=== PATIENT | female | born 1960 | race Caucasian/White ===

== ENCOUNTER 2016-06-28 11:12 | Observation (INO) ==
--- NOTE | 2016-06-28 11:19 | Emergency Department Note ---
Disposition Clinical Impression: Neurological deficit present Disposition: Admitted As Inpatient Condition: Good Time of Disposition: 13:53 Neuro HPI - General Chief Complaint: ED Neuro Symptoms/Deficit Stated Complaint: R side N/T Weakness Time Seen by Provider: 06/28/16 11:14 Source: patient, EMS Mode of arrival: EMS Limitations: no limitations Nursing Notes Reviewed: Yes Vital Signs Reviewed: Yes - History of Present Illness HPI Narrative: 85-year-old female with history of insulin-dependent diabetes arrives to [facility] emergency department after awaking at roughly 6 AM this morning complaining of right hand paresthesias. The patient denies any other complaints including chest pain, difficulty breathing. The patient does admit to progression of the right hand and arm paresthesias radiating more proximally from her hand as well as developing a frontal headache bilaterally. In addition now the patient is complaining of right-sided facial numbness. The patient does state that she has been told by her over the past 2 days that she has not been acting quite herself. The patient denies any recent illness, fever, chills, nausea, vomiting, abdominal pain. The patient denies any other neurologic deficits at this time. The patient does not meet stroke alert protocol given the patient's symptoms existing now for 5 hours but previous unknown overnight as well as not acting well over the past 2 days. The patient has an NIH of 1 at this time given her paresthesias and weakness in right hand. Onset of Symptoms Date: 06/28/16 (Unknown exact) Symptom Onset Unknown: Yes Location: right face, right arm History of same: No Severity: mild Quality: weakness, numbness Symptoms Improving: No Worsens with: time Context: other (Unknown) On Anticoagulants: No Associated symptoms: Reports: denies other symptoms Treatments Prior to Arrival: none - Related Data Home Medications: Home Medications Medication Instructions Recorded Confirmed Albuterol Neb [AccuNeb] 1.25 mg IH Q4H PRN 04/05/16 06/28/16 Albuterol Sulfate [Albuterol 2 puff IH Q4HR PRN 04/05/16 06/28/16 Inhaler] Allopurinol [Zyloprim] 300 mg PO DAILY 04/05/16 06/28/16 Aspirin 81 mg PO DAILY 04/05/16 06/28/16 BuPROPion XL (24 HR) [Wellbutrin 150 mg PO DAILY 04/05/16 06/28/16 XL] Budesonide/Formoterol 160/4.5 2 puff IH BIDR 04/05/16 06/28/16 [Symbicort 160/4.5] Carvedilol 12.5 mg PO DAILY 04/05/16 06/28/16 Cholecalciferol (D-3) [Vitamin D] 2,000 unit PO DAILY 04/05/16 06/28/16 Colchicine 0.6 mg PO DAILY PRN 04/05/16 06/28/16 Cyanocobalamin (Vitamin B-12) 1,000 mcg SL DAILY 04/05/16 06/28/16 [Vitamin B-12] Duloxetine [Cymbalta] 30 mg PO DAILY 04/05/16 06/28/16 EPINEPHrine [Epipen] 0.3 mg IM ONCE PRN 04/05/16 06/28/16 LORazepam [Ativan] 1 mg PO 5XD PRN 04/05/16 06/28/16 Levothyroxine [Synthroid] 50 mcg PO 0630 04/05/16 06/28/16 Losartan Potassium [Cozaar] 100 mg PO DAILY 04/05/16 06/28/16 Pantoprazole Sodium [Protonix] 40 mg PO DAILY 04/05/16 06/28/16 Simvastatin [Zocor] 40 mg PO HS 04/05/16 06/28/16 SitaGLIPtin [Januvia] 100 mg PO DAILY 04/05/16 06/28/16 SUMAtriptan Succinate [Imitrex] 100 mg PO DAILY PRN 06/28/16 06/28/16 Valacyclovir HCl [Valtrex] 1,000 mg PO TID 06/28/16 06/28/16 Allergies/Adverse Reactions: Allergies Allergy/AdvReac Type Severity Reaction Status Date / Time topiramate [From Topamax] Allergy Severe Anaphylaxis Verified 04/05/16 10:22 atorvastatin [From Lipitor] Allergy Mild Palpitation Verified 04/05/16 10:22 s glimepiride Allergy Mild See Verified 04/05/16 10:22 Comments levofloxacin [From Levaquin] Allergy Mild See Verified 04/05/16 10:22 Comments metformin Allergy Mild See Verified 04/05/16 10:22 Comments Oxycodone Allergy Mild Rash Verified 04/05/16 10:22 prednisone Allergy Mild See Verified 04/05/16 10:22 Comments acetaminophen [From Percocet] AdvReac Mild Nausea Verified 04/05/16 10:22 lisinopril AdvReac Mild Cough Verified 04/05/16 10:22 Review of Systems: Review of Systems Constitutional: Denies fevers, chills, HEENT: Denies headache, blurry vision, tinnitus, vertigo, sore throat, Respiratory: Denies cough, sputum change, hemoptysis, dyspnea Cardiac: Denies chest pain, pressure, palpitations, dyspnea on exertion, pedal edema Gastrointestinal: Denies abdominal pain, changes in bowel habits, vomiting, nausea, hematemesis, hematochezia Genitourinary: Denies dysuria, hematuria, nocturia, change in frequency, urgency, incontinence Neurologic: Admits to headaches, denies dizziness, syncope, admits to focalized weakness, paraesthesias, weakness Musculoskeletal: Denies back pain, joint pain, myalgias All systems ED: reviewed and negative except as stated. Past Medical History - Past Medical History Attestation: Yes The following information was validated with the patient. 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 Abdomen: Normal inspection, Normal bowel sounds 4 quadrants, nontender to palpation : Patient deferred Extremities: Normal inspection, full range of motion, appropriate pulses, capillary refill under 2 seconds Neurological: Patient alert and oriented 3, mild facial paresthesias on the right side of the face, all other cranial nerves intact bilaterally. GCS 15 Skin: Warm, intact, no rashes noted Course Course Narrative: Patient with right hand and arm paresthesias as well as the right side of the face. No stroke alert given the time that the patient is experiencing symptoms which is possibly up to 2 days given the patient's stating that she has not been acting herself for 2 days. In addition the patient states she woke up roughly 5 hours ago with these symptoms. There is an unknown onset. The patient does have an NIH of 1 at this time. We will perform basic lab work to include CBC, BMP, troponin, EKG, head CT. We will likely admit the patient to the hospitalist with neurology consult. - Consultations Consultation #1: Spoke with Dr. Mendoza in neurology who agreed to the plan of admission and further workup for possible stroke. The patient will be admitted to hospitals at this time. Time: 13:34 Vital Signs Temperature 98.3 F 06/28/16 11:14 Pulse Rate 70 06/28/16 11:14 Respiratory Rate 16 06/28/16 11:14 Blood Pressure 133/76 06/28/16 11:14 O2 Sat by Pulse Oximetry 98 06/28/16 11:14 Temperature 98.3 F 06/28/16 11:14 Pulse Rate 72 06/28/16 14:08 Respiratory Rate 14 06/28/16 14:08 Blood Pressure 134/85 06/28/16 14:08 O2 Sat by Pulse Oximetry 97 06/28/16 14:08 Oxygen Delivery Oxygen Delivery Room Air Neuro Symptoms/Deficit - MDM Narrative Medical decision making narrative: I examined this patient and my medical decision-making was reviewed with the B[employer]LE [employer] QUALITY CONTROL TECHNICIAN/PA/Advanced Practice Nurse/Resident Physician. I agree with the documented findings, disposition and treatment plan as described except to the extent set forth below. Patient was seen on arrival by EMS and myself and Dr. Hawkins. I agree with his evaluation and management plan, I supervised the care of the patient felt stated. Patient states her thinks she has been confused for last couple days. She thinks this could be 2 or 3 at most. She woke up this morning between 6 and 7 AM with numbness in her right arm low but in the right side of her face. Denies any chest pain no difficulty speaking or other weakness. These were present when she awoke. Did not occur after she was awake. She denies any history of stroke. Benadryl workup on her. She is outside the window of stroke alert. Her NIH at [place] is 1. She may need admission. She is in agreement with this plan. Given the patient's strokelike symptoms including paresthesias of the right upper extremity in the distal aspect as well as the right side of the face but being outside of any stroke protocol window given the patient's unknown time of onset, we will admit the patient to [facility] hospitalist group for further workup. Neurology has been consulted and is aware of the patient. Recommends no further workup in the emergency department at this time likely will receive carotid ultrasound as well as MRI of the brain. Patient denies any other complaints at this time. She remains GCS 15 is answering questions appropriate. She does slightly have a flat affect which has been noticed during the entire examination. The patient was informed that she would be admitted to the hospital in which she agrees. Lab work does reveal a increase in kidney function which is apparently at the patient's baseline when compared to previous visits. Lab work is otherwise unremarkable. 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 No other acute abnormalities noted. Chest x-ray demonstrated no acute findings. Chest X-Ray 06/28/16 11:15 IMPRESSION: No acute cardiopulmonary abnormality. D/ / Andres Carbone MD / Andres Carbone MD Interpreting Provider: Andres Carbone MD Head CT 06/28/16 11:15 IMPRESSION: 1. No acute intracranial abnormality. 2. There is asymmetric prominence of the right lateral ventricle compared to the left, which is unchanged from the prior exam. This may be congenital in nature. Mild leftward bowing of the septum pellucidum is seen, which is also unchanged. 3. Minimal chronic microvascular ischemic change. D/ / Andres Carbone MD / Andres Carbone MD Interpreting Provider: Andres Carbone MD - Lab Data Result diagrams: 06/28/16 12:34 03/23/17 12:34 Lab Results 06/28/16 06/28/16 06/28/16 Range/Units 12:34 12:34 12:34 WBC 9.5 (4.3-11.1) K/mcL RBC 4.13 (3.82-4.97) M/mcL Hgb 12.7 (11.5-15.4) g/dL Hct 37.9 (35.3-44.9) % MCV 91.8 (83.0-100.0) fL MCH 30.8 (28.0-33.3) pg MCHC 33.5 (31.6-35.5) g/dL RDW 13.5 (11.5-14.5) % Plt Count 311 (140-400) K/mcL MPV 8.9 L (9.4-12.4) fL Immature Gran % 0.9 (0-4) % Seg Neutrophils % 57.7 % Lymphocytes % 31.4 % Monocytes % 6.3 % Eosinophils % 3.0 % Basophils % 0.7 % Neutrophils # 5.5 (1.6-8.9) K/mcL Lymphocytes # 3.0 (0.6-4.6) K/mcL Monocytes # 0.6 (0.0-1.3) K/mcL Eosinophils # 0.3 (0.0-0.6) K/mcL Basophils # 0.1 (0.0-0.2) K/mcL Sodium 138 (136-145) mEq/L Potassium 4.4 (3.5-4.5) mEq/L Chloride 102 (98-109) mEq/L Carbon Dioxide 26 (19-29) mEq/L BUN 16 (7-20) mg/dL Creatinine 1.23 H (0.57-1.11) mg/dL Est GFR ( Amer) 55 L (> 60) Est GFR (Non-Af Amer) 46 L (> 60) BUN/Creatinine Ratio 13 (6-26) Glucose 218 H (70-99) mg/dL Calculated Osmolality 294 (280-300) Calcium 10.2 (8.6-10.8) mg/dL Troponin I 0.01 (0-0.03) ng/mL - EKG Data EKG attestation: Yes I reviewed and interpreted this EKG. EKG results narrative: Heart rate 72 bpm. KS 148 ms. QTC 373 ms. Normal axis. Normal sinus rhythm. No ST elevation or ST depression noted. EKG from 04/02/2016 someone appearance. No acute changes noted. NIH Stroke Scale - Level of Consciousness LOC: Alert - LOC Questions LOC Questions: Answers both correctly - LOC Commands LOC Commands: Performs both correctly - Best Gaze Best Gaze: Normal - Visual Visual: No visual loss - Facial Palsy Facial Palsy: Normal - Motor Arms Motor Arm-Left: No drift for 10 seconds Motor Arm-Right: No drift for 10 seconds - Motor Legs Motor Leg-Left: No drift for 5 seconds Motor Leg-Right: No drift for 5 seconds - Limb Ataxia Limb Ataxia: Normal, No Ataxia - Sensory Sensory: Mild to moderate loss, "not as sharp" - Best Language Best Language: No aphasia - Dysarthria Dysarthria: Normal - Extinction and Inattention Extinction and Inattention: Normal - NIHSS Total Score NIHSS Total Score: 1
[2016-06-28 12:40] LABS: Basophils # 0.1 K/mcL (0.0-0.2); Basophils % 0.7 %; Eosinophils # 0.3 K/mcL (0.0-0.6); Hematocrit 37.9 % (35.3-44.9); Hemoglobin 12.7 g/dL (11.5-15.4); Immature Granulocytes % 0.9 % (0-4); Lymphocytes % 31.4 %; Mean Corpuscular HGB Conc 33.5 g/dL (31.6-35.5); Mean Corpuscular Hemoglobin 30.8 pg (28.0-33.3); Mean Corpuscular Volume 91.8 fL (83.0-100.0); Mean Platelet Volume 8.9 fL (9.4-12.4); Monocytes # 0.6 K/mcL (0.0-1.3); Monocytes % 6.3 %; Neutrophils # 5.5 K/mcL (1.6-8.9); Platelet Count 311 K/mcL (140-400); Red Blood Count 4.13 M/mcL (3.82-4.97); Red Cell Distribution Width 13.5 % (11.5-14.5); Segmented Neutrophils % 57.7 %
[2016-06-28 12:52] LABS: Calcium 10.2 mg/dL (8.6-10.8); Potassium 4.4 mEq/L (3.5-4.5)
--- NOTE | 2016-06-28 14:12 | Neurology - Consult Note ---
Date of Encounter: 06/28/16 Time of Encounter: 14:06 Assessment and Plan (1) Stroke-like symptoms Current Visit: Yes Status: Acute Most likely lacunar etiology given the characteristics of her presentation in setting of recent uncontrolled hypertension Her CT was negative for bleed or infarct but did show chronic enlarged right ventricle Will follow up with MRI of brain without contrast along with echocardiogram and carotid ultrasound Start her on full dose Aspirin and her home dose of Simvastatin and she has an adverse reaction to Atorvastatin History of Present Illness Chief complaint: numbness tingling of right arm HPI: Ms. Grace is a 55 year old female who presents with right hand numbness and tingling. She first noticed the symptoms when she woke up this morning at 6 AM. She describes numbness in the medial aspect of her right hand, affecting her 3rd , 4th, and 5th digits. The numbness and tingling eventually progressed to the lateral aspect of her hand and also about 5 cm above her wrist, and also describes weakness in her right hand. She also noticed right facial numbness, but was unaware of it until the ER physician examined her. In addition, she claims both her and daughter noticed this Saturday that she was not acting herself and was more forgetful than normal. However, her sister is present a bedside and states she is currently acting like herself. Denies any changes in vision/hearing, loss of consciousness, or lower extremity problems. She never had any similar symptoms in the past and denies history of stroke, cancer, or blood clots. She does normally take low dose aspirin and simvastatin as well. Of note, she has a history of hypertension and states her home blood pressure readings this past week were slightly higher than usual. Past Med Surg Social Fam HX - Past Medical History Medical history: asthma, diabetes, GERD, hypertension, kidney stones, renal disease, other Psychiatric history: anxiety, depression - Past Surgical History Surgical History: , cholecystectomy, hysterectomy - Social History Smoking Status: Never smoker Smokeless Tobacco Status: No Alcohol use: none Drug use: none Medications and Allergies Albuterol Neb [AccuNeb] 1.25 mg IH Q4H PRN 04/05/16 [History] Albuterol Sulfate [Albuterol Inhaler] 2 puff IH Q4HR PRN 04/05/16 [History] Allopurinol [Zyloprim] 300 mg PO DAILY 04/05/16 [History] Aspirin 81 mg PO DAILY 04/05/16 [History] BuPROPion XL (24 HR) [Wellbutrin XL] 150 mg PO DAILY 04/05/16 [History] Budesonide/Formoterol 160/4.5 [Symbicort 160/4.5] 2 puff IH BIDR 04/05/16 [ History] Carvedilol 12.5 mg PO DAILY 04/05/16 [History] Cholecalciferol (D-3) [Vitamin D] 2,000 unit PO DAILY 04/05/16 [History] Colchicine 0.6 mg PO DAILY PRN 04/05/16 [History] Cyanocobalamin (Vitamin B-12) [Vitamin B-12] 1,000 mcg SL DAILY 04/05/16 [ History] Duloxetine [Cymbalta] 30 mg PO DAILY 04/05/16 [History] EPINEPHrine [Epipen] 0.3 mg IM ONCE PRN 04/05/16 [History] LORazepam [Ativan] 1 mg PO 5XD PRN 04/05/16 [History] Levothyroxine [Synthroid] 50 mcg PO 0630 04/05/16 [History] Losartan Potassium [Cozaar] 100 mg PO DAILY 04/05/16 [History] Pantoprazole Sodium [Protonix] 40 mg PO DAILY 04/05/16 [History] Simvastatin [Zocor] 40 mg PO HS 04/05/16 [History] SitaGLIPtin [Januvia] 100 mg PO DAILY 04/05/16 [History] SUMAtriptan Succinate [Imitrex] 100 mg PO DAILY PRN 06/28/16 [History] Valacyclovir HCl [Valtrex] 1,000 mg PO TID 06/28/16 [History] Allergies topiramate [From Topamax] Allergy (Severe, Verified 04/05/16 10:22) Anaphylaxis atorvastatin [From Lipitor] Allergy (Mild, Verified 04/05/16 10:22) Palpitations glimepiride Allergy (Mild, Verified 04/05/16 10:22) See Comments Angioedema levofloxacin [From Levaquin] Allergy (Mild, Verified 04/05/16 10:22) See Comments Crazy thoughts metformin Allergy (Mild, Verified 04/05/16 10:22) See Comments elevated renal function Oxycodone Allergy (Mild, Verified 04/05/16 10:22) Rash prednisone Allergy (Mild, Verified 04/05/16 10:22) See Comments Crazy thoughts acetaminophen [From Percocet] Adverse Reaction (Mild, Verified 04/05/16 10:22) Nausea lisinopril Adverse Reaction (Mild, Verified 04/05/16 10:22) Cough All Systems: A 10-system review of systems was performed and is negative for pertinent findings except as documented above in the HPI. - Constitutional Constitutional ROS IM: as per HPI, headache(s) (chronic, intermittent), weakness , no fever(s), no frequent falls - Nose, Mouth, Throat Nose, mouth and throat: no abnormal hearing, no dysphagia, no neck mass, no neck pain - Cardiovascular Cardiovascular ROS IM: no chest pain, no diaphoresis, no dyspnea, no edema, no irregular heart rhythm - Respiratory Respiratory IM: no cough, no dyspnea, no wheezing - Gastrointestinal Gastrointestinal: nausea, no abdominal pain, no vomiting - Genitourinary Genitourinary ROS: no dysuria, no hematuria - Musculoskeletal Musculoskeletal ROS IM: muscle weakness, numbness, tingling - Neurological Neurological ROS: confusion, focal weakness, headache(s), memory loss, numbness , tingling, weakness, no syncope, no tremor(s), no vertigo Physical Examination - Vital Signs Vital Signs: Initial Vital Signs Temp Pulse Resp BP Pulse Ox 98.3 F 70 16 133/76 98 06/28/16 11:14 06/28/16 11:14 06/28/16 11:14 06/28/16 11:14 06/28/16 11:14 - Constitutional General appearance: comfortable - Neurologic Sensorimotor examination: intact Motor examination - right side: 3/5: back tender cylinder, 5/5: deltoids, biceps, triceps, quadriceps Motor examination - left side: 5/5: deltoids, biceps, triceps, hip flexors, back tender cylinder , quadriceps Detailed sensory examination: two-point discrimination (symptomatic on right face) Reflex and gait examination: intact Reflexes: Biceps: 2+, Triceps: 2+, Patella: 2+ Mental Status Examination: awake, alert, oriented to person, oriented to place, oriented to time, follows commands appropriately, answers questions appropriately, no agnosia, no aphasia, no aproxia Cranial nerve examination: PERRL, EOMI, visual kathleen intact, corneal reflexes brisk symmetrically, sensory to face intact, mastication intact, no facial asymmetry is present, no dysarthria, hearing is intact symmetrically, soft palate elevates bilaterally upon phonation, gag reflex intact, flexes SCM and trapezius muscles symmetrically with full power, tongue protrudes midline, no atrophy or facial fasiculations present Cerebellar examination: no dysmetria, performs finger to nose and heel to baptiste symmetrically without ataxia, no gait ataxia, no truncal ataxia, no difficulty with rapid alternating movements Results - Laboratory Findings CBC and BMP: 06/28/16 12:34 06/28/16 12:34 Abnormal lab findings: Abnormal lab results MPV 8.9 fL (9.4-12.4) L 06/28/16 12:34 Creatinine 1.23 mg/dL (0.57-1.11) H 06/28/16 12:34 Est GFR ( Amer) 55 (> 60) L 06/28/16 12:34 Est GFR (Non-Af Amer) 46 (> 60) L 06/28/16 12:34 Glucose 218 mg/dL (70-99) H 06/28/16 12:34 Consult Discharge Plan - Plan Referrals: Lizzette Hallman MD [Primary Care Provider] -
[2016-06-28 14:22] LABS: Bilirubin,Urine Negative (Negative); Blood,Urine Negative (Negative); Clarity,Urine Clear (Clear); Color,Urine Yellow (Yellow); Glucose,Urine (UA) Normal (Normal); Ketones,Urine Negative (Negative); Leukocyte Esterase,Urine Negative (Negative); Nitrite,Urine Negative (Negative); Protein,Urine Negative (Neg-Trace); Specific Gravity,Urine 1.018 (1.010-1.025); Urobilinogen,Urine Normal (Normal)
[2016-06-28] MEDS ORDERED: Naloxone 0.4 MG/ML INJ IVP PRN (15:45)
[2016-06-28] MEDS ORDERED: Acetaminophen 325 MG TABLET PO PRN (15:45)
[2016-06-28] MEDS ORDERED: Ondansetron 4 MG/2 ML VIAL IVP PRN (15:45)
[2016-06-28] MEDS: Aspirin 325 MG TABLET PO SCH (15:47)
[2016-06-28] MEDS ORDERED: *HR* Dextrose 50 % in Water (Syg) 50 ML SYRINGE IVP PRN (17:53)
[2016-06-28] MEDS ORDERED: Dextrose Gel 15 GM PO PRN ×2 (17:53)
[2016-06-28] MEDS ORDERED: Albuterol Neb 1.25 MG/3 ML VIAL IH PRN (18:05)
[2016-06-28] MEDS ORDERED: ALBUTEROL IH PRN (18:19)
[2016-06-28] MEDS ORDERED: SODIUM CHLORIDE IH PRN (18:19)
[2016-06-28 18:28] LABS: Hemoglobin A1C 9.4 %
[2016-06-28] MEDS: Budesonide/Formoterol 160/4.5 MDI IH SCH (20:51)
[2016-06-28] MEDS ORDERED: Insulin LISPRO 300 UNITS/3 ML VIAL SQ SCH (21:00)
--- NOTE | 2016-06-28 21:01 | Internal Med History&Physical ---
Date of Encounter: 06/28/16 Time of Encounter: 17:00 Assessment and Plan (1) Stroke-like symptoms Current visit: Yes Status: Acute 1 patient has been experiencing right-sided arm weakness numbness and tingling. CT of head was negative for bleed or infarct but did show chronic enlargement ventricle as well as minimal chronic microvascular ischemic changes. Patient was seen by neurology who suspected this most likely etiology due to her presentation and her recently uncontrolled hypertension. She was placed on full dose aspirin and continue with simvastatin. 2 routine lipid profile in a.m. 3 tingling MRI of brain 4 echocardiogram 5 bilateral carotid ultrasound (2) Hypertension Current visit: Yes Status: Acute 1 presently systolic blood pressure 120 to 130. We will continue with home medications. Goal is to maintain systolic blood pressure less than 140 Qualifiers: Hypertension type: essential hypertension Qualified Code(s): I10 - Essential (primary) hypertension (3) Diabetes mellitus Current visit: Yes Status: Acute Patient has history of diabetes Oral Antidiabetics at Home. We Will Place on Accu-Cheks before Meals and at Bedtime with Insulin As Needed Colostomy Team Postprandial Less Than 180 2 diabetic diet Qualifiers: Diabetes mellitus type: type 2 Diabetes mellitus complication status: with kidney complications Diabetes mellitus complication detail: with chronic kidney disease Diabetes mellitus fci insulin use: without fci use Chronic kidney disease stage: stage 2 (mild) Qualified Code(s): E11.22 - Type 2 diabetes mellitus with diabetic chronic kidney disease; N18.2 - Chronic kidney disease, stage 2 (mild) (4) Chronic kidney disease (CKD), stage II (mild) Current visit: Yes Status: Acute Internal Medicine - H&P: HPI Chief complaint: r sided weakness Admitted From: Emergency Dept Plans for Post Hospital Care: Home History of present illness: Ms. Grcae is a 55 year old female past history of asthma and diabetes GERD hypertension see CKD stage II. Creatinine the patient should experience decreased weakness/to her right hand as well as tingling to her third and fourth digits numbness and tingling that she progressed to lateral aspect of her hand as well as wrist. She also has some right facial numbness which did not notice this until she arrived in the ER during examination.. According to her family the patient had not been acting herself since Saturday. Has been states she noted that she was more forgetful and at times seemed as if she was not processing information. She denies any changes in her vision hearing or problems swallowing chewing. She states that she has noticed that she has had difficulty holding onto items in her right hand felt like her arm was heavy. She denies any past history of stroke, she does not smoke. She is on aspirin and statin at home she has history of hypertension and states her blood pressure has been elevated in the past week. She presented to the ED with the above complaints. According to ER records CT of head revealed minimal chronic microvascular ischemic changes. No acute intracranial abnormalities. Lab work was unremarkable. She did weakness in her right hand as well as right facial numbness. Chest x-ray no acute process. Neurology was consulted and the patient has been admitted for further workup and evaluation. Presently patient appears to be in no respiratory distress . She is alert and oriented 4 cranial nerves II through XII are intact. Limited right hand weakness and decreased strength in right arm. She had a positive Romberg sign. Presently she is hemodynamically stable. I did review this case with who agrees with plan Past Med Surg Social Fam HX - Past Medical History Medical history: asthma, diabetes, GERD, hypertension, kidney stones, renal disease, other Psychiatric history: anxiety, depression - Past Surgical History Surgical History: , cholecystectomy, hysterectomy - Social History Smoking Status: Never smoker Smokeless Tobacco Status: No Alcohol use: none Drug use: none - Family History Mother Living Status: Hx Family Cardiac Disorders: Yes (heart attack) Hx Family Neurologic Disorders: Yes (stroke) Internal Medicine - H&P: Meds Albuterol Neb [AccuNeb] 1.25 mg IH Q4H PRN 04/05/16 [History] Albuterol Sulfate [Albuterol Inhaler] 2 puff IH Q4HR PRN 04/05/16 [History] Allopurinol [Zyloprim] 300 mg PO DAILY 04/05/16 [History] Aspirin 81 mg PO DAILY 04/05/16 [History] BuPROPion XL (24 HR) [Wellbutrin XL] 150 mg PO DAILY 04/05/16 [History] Budesonide/Formoterol 160/4.5 [Symbicort 160/4.5] 2 puff IH BIDR 04/05/16 [ History] Carvedilol 12.5 mg PO DAILY 04/05/16 [History] Cholecalciferol (D-3) [Vitamin D] 2,000 unit PO DAILY 04/05/16 [History] Colchicine 0.6 mg PO DAILY PRN 04/05/16 [History] Cyanocobalamin (Vitamin B-12) [Vitamin B-12] 1,000 mcg SL DAILY 04/05/16 [ History] Duloxetine [Cymbalta] 30 mg PO DAILY 04/05/16 [History] EPINEPHrine [Epipen] 0.3 mg IM ONCE PRN 04/05/16 [History] LORazepam [Ativan] 1 mg PO 5XD PRN 04/05/16 [History] Levothyroxine [Synthroid] 50 mcg PO 0630 04/05/16 [History] Losartan Potassium [Cozaar] 100 mg PO DAILY 04/05/16 [History] Pantoprazole Sodium [Protonix] 40 mg PO DAILY 04/05/16 [History] Simvastatin [Zocor] 40 mg PO HS 04/05/16 [History] SitaGLIPtin [Januvia] 100 mg PO DAILY 04/05/16 [History] SUMAtriptan Succinate [Imitrex] 100 mg PO DAILY PRN 06/28/16 [History] Valacyclovir HCl [Valtrex] 1,000 mg PO TID 06/28/16 [History] Allergies topiramate [From Topamax] Allergy (Severe, Verified 04/05/16 10:22) Anaphylaxis atorvastatin [From Lipitor] Allergy (Mild, Verified 04/05/16 10:22) Palpitations glimepiride Allergy (Mild, Verified 04/05/16 10:22) See Comments Angioedema levofloxacin [From Levaquin] Allergy (Mild, Verified 04/05/16 10:22) See Comments Crazy thoughts metformin Allergy (Mild, Verified 04/05/16 10:22) See Comments elevated renal function Oxycodone Allergy (Mild, Verified 04/05/16 10:22) Rash prednisone Allergy (Mild, Verified 04/05/16 10:22) See Comments Crazy thoughts acetaminophen [From Percocet] Adverse Reaction (Mild, Verified 04/05/16 10:22) Nausea lisinopril Adverse Reaction (Mild, Verified 04/05/16 10:22) Cough All Systems PM: A 10-system review of systems was performed and is negative for pertinent findings except as documented above in the HPI. - Constitutional Constitutional: no chills, no fever(s), no night sweats - EENT Eyes: no change in vision, no discharge, no pain, no photophobia - Cardiovascular Cardiovascular ROS IM: no chest pain, no diaphoresis, no dyspnea, no lightheadedness, no palpitations, no syncope - Respiratory Respiratory: no cough, no dyspnea, no wheezing, no excessive phlegm production - Gastrointestinal Gastrointestinal: no abdominal pain, no diarrhea, no hematemesis, no hematochezia, no melena, no nausea, no vomiting - Genitourinary Genitourinary: no change in urinary stream, no dysuria, no flank pain, no hematuria - Musculoskeletal Musculoskeletal ROS IM: no numbness, no tingling - Integumentary Integumentary IM: as per HPI - Neurological Neurological ROS: numbness, tingling, weakness - Constitutional Vitals: Temp Pulse Resp BP Pulse Ox 98.3 F 79 16 122/72 95 06/28/16 19:25 06/28/16 19:25 06/28/16 19:25 06/28/16 19:25 06/28/16 19:25 General appearance: Present: A&O X 3, answers questions appropriately - Head Head exam: Present: atraumatic, normocephalic - Eye Eye exam: Present: PERRL, conjuntiva pink, sclera anicteric Pupils: Present: PERRL - Respiratory Respiratory exam: Present: CTAB. Absent: accessory muscle use, rales, rhonchi, wheezes - Cardiovascular Cardiovascular exam: Present: RRR, +S1, +S2. Absent: diastolic murmur, gallop, rubs, systolic murmur - GI/Abdominal GI/Abdominal exam: Present: normal bowel sounds, soft, no peritoneal signs. Absent: distended, tenderness - Extremities Exam Extremities exam: Present: warm, radial pulses palpable and symetrical. Absent : calf tenderness, cyanotic, pedal edema - Neurological Exam Neurological exam: Present: CN II-XII intact, oriented X3, no focal deficits. Absent: pronater drift, facial droop, speech deficit - Expanded Neurological Exam Patient oriented to: Present: person, place, time Speech: Present: fluid speech Cerebellar function: finger to nose: Normal, heel to baptiste: Normal, Romberg: Abnormal Left Neuro motor strength exam: LUE: 5, RUE: 3, LLE: 5, RLE: 5 Coma Scale Eye Opening: Spontaneous Coma Scale Motor Response: Obeys Commands Coma Scale Verbal Response: Oriented Coma Scale Total: 15 Internal Med - H&P Results - Labs CBC & Chem 7: 06/28/16 12:34 06/28/16 12:34 Labs: Urine 06/28/16 Range/Units 14:12 Urine Color Yellow (Yellow) Urine Clarity Clear (Clear) Urine pH 6.0 (5.0-8.0) pH Units Ur Specific Dresher 1.018 (1.010-1.025) Urine Protein Negative (Neg-Trace) mg/dL Urine Glucose (UA) Normal (Normal) mg/dL - EKG Data EKG shows normal: sinus rhythm - Impressions ITS Impressions Brain MRI 06/28/16 14:13 IMPRESSION: No acute infarct. D/ / Kendrick Lew MD / Kendrick Lew MD Interpreting Provider: Kendrick Lew MD - Diagnostic Studies Other Images Additional comments: Chest X-Ray 06/28/16 11:15 IMPRESSION: No acute cardiopulmonary abnormality. D/ / Andres Carbone MD / Andres Carbone MD Interpreting Provider: Andres Carbone MD Head CT 06/28/16 11:15 IMPRESSION: 1. No acute intracranial abnormality. 2. There is asymmetric prominence of the right lateral ventricle compared to the left, which is unchanged from the prior exam. This may be congenital in nature. Mild leftward bowing of the septum pellucidum is seen, which is also unchanged. 3. Minimal chronic microvascular ischemic change. D/ / Andres Carbone MD / Andres Carbone MD Interpreting Provider: Andres Carbone MD Brain MRI 06/28/16 14:13
[2016-06-29 03:53] LABS: Basophils % 0.5 %; Eosinophils # 0.3 K/mcL (0.0-0.6); Eosinophils % 2.8 %; Hematocrit 33.6 % (35.3-44.9); Hemoglobin 11.4 g/dL (11.5-15.4); Immature Granulocytes % 0.9 % (0-4); Lymphocytes # 3.1 K/mcL (0.6-4.6); Lymphocytes % 34.6 %; Mean Corpuscular HGB Conc 33.9 g/dL (31.6-35.5); Mean Corpuscular Hemoglobin 31.4 pg (28.0-33.3); Mean Corpuscular Volume 92.6 fL (83.0-100.0); Mean Platelet Volume 9.9 fL (9.4-12.4); Monocytes # 0.7 K/mcL (0.0-1.3); Monocytes % 7.9 %; Neutrophils # 4.7 K/mcL (1.6-8.9); Platelet Count 291 K/mcL (140-400); Red Blood Count 3.63 M/mcL (3.82-4.97); Red Cell Distribution Width 13.5 % (11.5-14.5); Segmented Neutrophils % 53.3 %
[2016-06-29 04:24] LABS: BUN/Creatinine Ratio 14 (6-26); Blood Urea Nitrogen 18 mg/dL (7-20); Calcium 9.2 mg/dL (8.6-10.8); Carbon Dioxide 25 mEq/L (19-29); Chloride 104 mEq/L (98-109); Chol/HDL Ratio 6.6 (0-4.9); Cholesterol 239 mg/dL (< 200); Glucose 272 mg/dL (70-99); HDL Cholesterol 36 mg/dL (40-59); Osmolality,Calculated 302 (280-300); Potassium 3.9 mEq/L (3.5-4.5); Sodium 140 mEq/L (136-145); Triglycerides 494 mg/dL (< 150); eGFR For African Americans 54 (> 60); eGFR For Non-African Americans 45 (> 60)
--- NOTE | 2016-06-29 06:58 | Carotid Imaging Report ---
Carotid Duplex Patient Name:Mayte Grace Order Number:[id number] Procedure Date:06/28/2016 Date:1960ge:55 yrs Gender:Female Lt BP:135 / 84 mmHg Rt.BP:134 / 85 mmHgHeart Rate: Location:[facility] Room #: 3B39 Scanner Supervisor:Lisha Quiles Referring MD:Hector Mckeon DO roll plugger:Lizzette Hallman MD Reading MD:Jann Saba MD Primary Indications:stroke like symptoms Risk Factors Yes/No Hypertension Yes Diabetes Yes Hypercholesterolemia Yes Impressions: The bilateral carotid arteries are normal throughout. Recommendations: After imaging the patient returned to their room. Findings Carotid Duplex: Mo scale imaging combined with Doppler flow analysis suggests normal findings bilaterally. Right: The right proximal common carotid artery has a PSV of 89 cm/s and a EDV of 25 cm/s. The right mid common carotid artery has a PSV of 52 cm/s and a EDV of 14 cm/s. The right distal common carotid artery has a PSV of 53 cm/s and a EDV of 18 cm/s. The right bifurcation has a PSV of 39 cm/s and a EDV of 13 cm/s. The right proximal internal carotid artery has a PSV of 57 cm/s and a EDV of 21 cm/s. The right mid internal carotid artery has a PSV of 71 cm/s and a EDV of 25 cm/s. The right distal internal carotid artery has a PSV of 86 cm/s and a EDV of 31 cm/s. The right eca has a PSV of 100 cm/s and a EDV of 14 cm/s. The right vertebral artery has a PSV of 39 cm/s and a EDV of 15 cm/s. Left: The left proximal common carotid artery has a PSV of 93 cm/s and a EDV of 30 cm/s. The left mid common carotid artery has a PSV of 85 cm/s and a EDV of 26 cm/s. The left distal common carotid artery has a PSV of 54 cm/s and a EDV of 19 cm/s. The left bifurcation has a PSV of 50 cm/s and a EDV of 17 cm/s. The left proximal internal carotid artery has a PSV of 45 cm/s and a EDV of 19 cm/s. The left mid internal carotid artery has a PSV of 59 cm/s and a EDV of 22 cm/s. The left distal internal carotid artery has a PSV of 65 cm/s and a EDV of 25 cm/s. The left eca has a PSV of 94 cm/s and a EDV of 23 cm/s. The left vertebral artery has a PSV of 32 cm/s and a EDV of 12 cm/s. Prior Study: No prior study available for comparison. Carotid Results Right PSV EDV Assessment Proximal CCA 89 25 Normal Mid CCA 52 14 Normal Distal CCA 53 18 Normal Bifurcation 39 13 Normal Proximal ICA 57 21 Normal Mid ICA 71 25 Normal Distal ICA 86 31 Normal ECA 100 14 Normal Vertebral Artery 39 15 Normal Left PSV EDV Assessment Proximal CCA 93 30 Normal Mid CCA 85 26 Normal Distal CCA 54 19 Normal Bifurcation 50 17 Normal Proximal ICA 45 19 Normal Mid ICA 59 22 Normal Distal ICA 65 25 Normal ECA 94 23 Normal Vertebral Artery 32 12 Normal Ratio's Right ICA/CCA Ratio: 1.65 ICA/CCA Values: 86/52 Left ICA/CCA Ratio: 0.76 ICA/CCA Values: 65/85 Updated by Jann Saba MD on 06/29/2016 6:53:52 AM electronically signed on 06/29/2016 6:54:05 AM with status of Final
[2016-06-29] MEDS: Budesonide/Formoterol 160/4.5 MDI IH SCH (08:04)
[2016-06-29] MEDS ORDERED: Cholecalciferol (D-3) 1,000 UNIT TABLET PO SCH (09:00)
[2016-06-29] MEDS ORDERED: BuPROPion XL (24 HR) 150 MG TABLET PO SCH (09:00)
[2016-06-29] MEDS ORDERED: Cyanocobalamin (B-12) 1,000 MCG TABLET PO SCH (09:00)
[2016-06-29] MEDS: Insulin LISPRO 300 UNITS/3 ML VIAL SQ SCH ×3 (09:02→17:15)
[2016-06-29] MEDS: Aspirin 325 MG TABLET PO SCH (09:03)
--- NOTE | 2016-06-29 09:45 | ECHO - Doppler Report ---
Echo with Saline Contrast Name: Mayte Grace Date of Study: 06/28/2016 Date: 1960 Ht: 65.0 in Medical Record#: [id number] Age: 55 Wt: 185.0 lb Gender: Female BSA: 1.91 Order #: [id number] Location: [facility] Room #: [id number] Reading Physician: Earnest Rivas DO, CARYL, SCOTT EUBANKS Patient Registration Representative: Lisha Quiles Ordering Physician: Hector Mckoen DO Primary Physician: Lizzette Hallman MD Indications: Stroke like symptoms Impressions: LVEF 55%. Normal LV chamber size, wall thickness and function. Mild left ventricular diastolic dysfunction. Atypical septal motion of unclear etiology. Normal right ventricular structure and function. No evidence of PFO with agitated saline contrast. No evidence of pulmonary hypertension. No significant valvular dysfunction. Left Ventricular Wall Motion: Rest Echo Findings All wall segments showed normal motion. Findings: Study Quality * Technically adequate exam. ECG Findings * Normal sinus rhythm. Left Ventricle * LVEF 55%. * Normal LV chamber size, wall thickness and function. * Mild left ventricular diastolic dysfunction. * Atypical septal motion of unclear etiology. Right Ventricle * Normal right ventricular structure and function. Left Atrium * Mildly dilated left atrium. Right Atrium * Mildly dilated right atrium. Interatrial Septum * No evidence of PFO with agitated saline contrast. Aortic Valve * Trileaflet aortic valve with normal function. * No aortic regurgitation. * No aortic stenosis. Mitral Valve * Normal mitral valve structure and function. * No mitral regurgitation. * No mitral stenosis. Tricuspid Valve * Normal tricuspid valve structure and function. * Trace tricuspid regurgitation. * No evidence of pulmonary hypertension. Pulmonic Valve * Normal pulmonic valve structure and function. * No pulmonic regurgitation. Aorta * Normally sized aortic root. Pericardium * The pericardium appears normal. IVC * Normal IVC dimensions and inspiratory collapse. Pulmonary Artery * Normal visualized portions of the main pulmonary artery. History Hypertension Diabetes Hypercholesteremia Family History of CAD Measurements: BP: 135/ 84 2D Normal Values RVIDd: 2.90 cm <2.7 cm IVSd: .80 cm 0.6 - 1.0 cm LVIDd: 5.40 cm 3.7 - 5.6 cm LVPWd: .70 cm 0.6 - 1.1 cm LVIDs: 3.20 cm 1.5 - 3.6 cm AO: 2.80 cm < 4.0 cm LA: 3.30 cm 2.0 - 4.0cm %FS: 40.70 cm >25 % LA volume: 42 Mitral Valve Peak E:.66 m/sec Peak A:.76 m/sec E/A Ratio:0.9 Peak E' Lat Angel:12.6 cm/s Peak E' Med Angel:7.12 cm/s E/E' Lat Ratio:5.2 E/E' Med Ratio:9.3 Tricuspid Valve TV Regurg Peak Grad: 17.00mmHg TV Regurg Peak Angel: 2.06m/sec Updated by Earnest Rivas DO, CARYL, RAIMUNDO, SCOTT on 06/29/2016 9:41:23 AM electronically signed on 06/29/2016 9:41:39 AM with status of Final Wall Motion Gómez: 1=Normal, 2=Hypokinesis, 3=Akinesis, 4=Dyskinesis, 5=Aneurysmal, 6=Hyperkinetic, X=Not Visualized (Blank)=Missing
[2016-06-29] MEDS: *HR* LORazepam 1 MG TABLET PO PRN ×2 (12:53→17:15)
--- NOTE | 2016-06-29 18:27 | Discharge Summary ---
Date of Encounter: 06/29/16 Time of Encounter: 16:00 - Discharge Diagnosis (1) Stroke-like symptoms Priority: Primary Status: Ruled-out Comments: Acute CVA ruled out. Follow-up outpatient with neurology and primary care provider (2) Insurance coverage problems Priority: Primary Status: Acute Comments: Patient has Medicare and does not have prescription coverage however her primary care provider put her on Januvia and Victoza both of which are extremely expensive. Patient cannot afford them and has not been taking her diabetes medications for at least 2 weeks. I will defer to her primary care provider regarding long-term management however today, she will be placed on metformin and glipizide. Of note, in review of her chart and her most recent visit with her primary care provider, who states she could not tolerate erythematosus and she was placed back on Januvia and she was placed in a patient assistance program and was able to get it free of cost. She told me she was unable to afford and that is why she was not taking it. Strongly suspect noncompliance. Recommend follow-up outpatient with primary care provider. (3) Noncompliance Priority: Primary Status: Acute (4) Diabetes mellitus Priority: Secondary Status: Chronic Comments: Uncontrolled. A1c 9.4%. She states she is not taking her medications because she cannot afford them, we will place her on cheaper medications. Follow up outpatient Qualifiers: Diabetes mellitus type: type 2 Diabetes mellitus complication status: with kidney complications Diabetes mellitus complication detail: with chronic kidney disease Diabetes mellitus jail insulin use: without emt intermediate use Chronic kidney disease stage: stage 2 (mild) Qualified Code(s): E11.22 - Type 2 diabetes mellitus with diabetic chronic kidney disease; N18.2 - Chronic kidney disease, stage 2 (mild) (5) Hypertension Priority: Secondary Status: Chronic Comments: Controlled with her home medications, follow up outpatient Qualifiers: Hypertension type: essential hypertension Qualified Code(s): I10 - Essential (primary) hypertension (6) CKD (chronic kidney disease) stage 3, GFR 30-59 ml/min Priority: Secondary Status: Chronic Comments: Consistently in stage III since the end of last year, follow-up outpatient - Discharge Medications Prescriptions: Aspirin 325 mg PO DAILY #30 tablet GlipiZIDE [Glipizide Xl] 5 mg PO DAILY #30 tab.er.24 Metformin HCl [Glucophage] 1,000 mg PO BIDWM #60 tablet Home Medications: Albuterol Neb [AccuNeb] 1.25 mg IH Q4H PRN 04/05/16 [History] Albuterol Sulfate [Albuterol Inhaler] 2 puff IH Q4HR PRN 04/05/16 [History] Allopurinol [Zyloprim] 300 mg PO DAILY 04/05/16 [History] BuPROPion XL (24 HR) [Wellbutrin Xl] 150 mg PO DAILY 04/05/16 [History] Budesonide/Formoterol 160/4.5 [Symbicort 160/4.5] 2 puff IH BIDR 04/05/16 [ History] Carvedilol 12.5 mg PO DAILY 04/05/16 [History] Cholecalciferol (D-3) [Vitamin D] 2,000 unit PO DAILY 04/05/16 [History] Colchicine 0.6 mg PO DAILY PRN 04/05/16 [History] Cyanocobalamin (Vitamin B-12) [Vitamin B-12] 1,000 mcg SL DAILY 04/05/16 [ History] Duloxetine [Cymbalta] 30 mg PO DAILY 04/05/16 [History] EPINEPHrine [Epipen] 0.3 mg IM ONCE PRN 04/05/16 [History] LORazepam [Ativan] 1 mg PO 5XD PRN 04/05/16 [History] Levothyroxine [Synthroid] 50 mcg PO 0630 04/05/16 [History] Losartan Potassium [Cozaar] 100 mg PO DAILY 04/05/16 [History] Pantoprazole Sodium [Protonix] 40 mg PO DAILY 04/05/16 [History] Simvastatin [Zocor] 40 mg PO HS 04/05/16 [History] SUMAtriptan Succinate [Imitrex] 100 mg PO DAILY PRN 06/28/16 [History] Valacyclovir HCl [Valtrex] 1,000 mg PO TID 06/28/16 [History] Aspirin 325 mg PO DAILY #30 tablet 06/29/16 [Rx] GlipiZIDE [Glipizide Xl] 5 mg PO DAILY #30 tab.er.24 06/29/16 [Rx] Metformin HCl [Glucophage] 1,000 mg PO BIDWM #60 tablet 06/29/16 [Rx] Allergies/Adverse Reactions: Allergies topiramate [From Topamax] Allergy (Severe, Verified 04/05/16 10:22) Anaphylaxis atorvastatin [From Lipitor] Allergy (Mild, Verified 04/05/16 10:22) Palpitations glimepiride Allergy (Mild, Verified 04/05/16 10:22) See Comments Angioedema levofloxacin [From Levaquin] Allergy (Mild, Verified 04/05/16 10:22) See Comments Crazy thoughts metformin Allergy (Mild, Verified 04/05/16 10:22) See Comments elevated renal function Oxycodone Allergy (Mild, Verified 04/05/16 10:22) Rash prednisone Allergy (Mild, Verified 04/05/16 10:22) See Comments Crazy thoughts acetaminophen [From Percocet] Adverse Reaction (Mild, Verified 04/05/16 10:22) Nausea lisinopril Adverse Reaction (Mild, Verified 04/05/16 10:22) Cough Procedures/tests Complete & Pending: Procedures Performed prior 72 hours Category Date Time Status MR head/brain wo con [MR] Routine MRI 06/28/16 14:13 Completed ECG 12 lead ECG [ECG] AM 0600 Y 06/29/16 06:00 Ordered EKG [ECG 12 lead ECG] [ECG] Stat Y 06/29/16 12:27 Completed EV carotid duplex imaging BI Stat Y 06/28/16 14:15 Completed EV echocardiogram Routine Y 06/28/16 14:13 Completed Date of admission: 06/28/16 14:00 Primary care physician: Lizzette Mcneil Consults: 06/28/16 13:14 Consult to Neurology [CONS] Routine Consulting Provider: Neurology [facility] Reason for Consult: RUE Paraesthesia Call Completed: Yes Discharging clinician: Temitope Castañeda Anticipated date of discharge: 06/29/16 - Patient Status Disposition: Home, Self-Care Condition: Good Functional capacity at discharge: independent ambulation Overall status at discharge: patient is back to baseline - Discharge Instructions Instructions: Diabetes Mellitus Type 2 in Adults (DC), Chronic Hypertension (DC ) Follow Up With: Lizzette Hallman MD [Primary Care Provider] - 07/04/16 2:00 pm Dheeraj Mendoza MD [Partnered Physician] - 08/01/16 1:00 pm Additional Instructions: Follow-up with primary care provider and neurology as scheduled - Diet and Activity Activity: increase activity as tolerated Diet: diabetic diet, low fat, low cholesterol, low salt diet Hospital course: Ms. Grace is a 55 year old female with past medical history of uncontrolled diabetes, asthma, GERD, hypertension, chronic kidney disease stage III. Patient presented to the emergency department chief complaint weakness to her right hand and tingling of her third and fourth digits. Patient was also noted to have right-sided facial numbness that she did not notice until she arrived in the emergency department and underwent an examination. Patient's family also stating she had not been acting herself and was becoming more forgetful. Patient denied any vision changes or difficulty eating. She did notice she had difficulty holding onto items with her right hand. Patient also states her blood pressure is been elevated over the past week. Workup in the emergency department unremarkable. Chest x-ray negative. Head CT negative. Patient was admitted to the hospitalist service for further evaluation and management. Her A1c was 9.4. She is listed as being on Victoza and Januvia but she informed me that she was unable to afford these medications because she does not have insurance coverage for her prescriptions. Of note, patient told me that she could not afford these medications and notes when she was not taking them however when she saw her primary care provider 2 months ago, she was placed in a patient funeral assistant program and was able to get these medications for free so strongly suspect a real reasoning is noncompliance. I will defer to her primary care provider regarding long-term management however today, she will be placed on metformin and glipizide. We will give her prescriptions for the aforementioned cheaper variations of the diabetes medications however will have her follow-up with her primary care provider for further care and management of her diabetes. Of note, she states she was taken off the sulfonylurea in the past due to issues with her kidneys but she has stable renal functioning and the benefits outweigh the risks at this time. She had no focal neurological weaknesses or deficits present on examination throughout this admission. Brain MRI negative for acute processes. Carotid ultrasound unremarkable. Echocardiogram revealing ejection fraction of 55%, mild diastolic dysfunction and did reveal atypical septal wall motion of unclear etiology. EKG without acute changes, recommend follow-up outpatient with primary care provider. Acute CVA was ruled out. Patient was seen by neurology who recommended increasing her daily aspirin to a full strength aspirin. He also wants to follow up with her 2 weeks outpatient. She is discharged home in stable condition with close outpatient follow-up recommended. ITS Impressions Chest X-Ray 06/28/16 11:15 IMPRESSION: No acute cardiopulmonary abnormality. D/ / Andres Carbone MD / Andres Carbone MD Interpreting Provider: Andres Carbone MD Head CT 06/28/16 11:15 IMPRESSION: 1. No acute intracranial abnormality. 2. There is asymmetric prominence of the right lateral ventricle compared to the left, which is unchanged from the prior exam. This may be congenital in nature. Mild leftward bowing of the septum pellucidum is seen, which is also unchanged. 3. Minimal chronic microvascular ischemic change. D/ / Andres Carbone MD / Andres Carbone MD Interpreting Provider: Andres Carbone MD Brain MRI 06/28/16 14:13 IMPRESSION: No acute infarct. D/ / Kendrick Lew MD / Kendrick Lew MD Interpreting Provider: Kendrick Lew MD Carotid duplex impression: The bilateral carotid arteries are normal throughout. Echocardiogram is saline contrast impressions: LVEF 55%. Normal LV chamber size , wall thickness and function. Mild left ventricular diastolic dysfunction. Atypical septal motion of unclear etiology. Normal right ventricular structure and function. No evidence of PFO with agitated saline contrast. No evidence of pulmonary hypertension. No significant valvular dysfunction. - Time Spent with Patient Total time spent providing and/or coordinating discharge services: - Constitutional Vitals: Temp Pulse Resp BP Pulse Ox 98.2 F 68 16 117/68 96 06/29/16 15:41 06/29/16 15:41 06/29/16 15:41 06/29/16 15:41 06/29/16 15:41 General appearance: Present: A&O X 3, pleasant, no acute distress, answers questions appropriately - Head Head exam: Present: atraumatic, normocephalic - Eye Eye exam: Present: PERRL, conjuntiva pink, sclera anicteric Pupils: Present: PERRL - Neck Neck exam general surgery: Present: supple, trachea midline. Absent: lymphadenopathy - Respiratory Respiratory exam: Present: CTAB. Absent: accessory muscle use, rales, respiratory distress, rhonchi, wheezes - Cardiovascular Cardiovascular exam: Present: RRR, +S1, +S2. Absent: diastolic murmur, gallop, rubs, systolic murmur - GI/Abdominal GI/Abdominal exam: Present: normal bowel sounds, soft, no peritoneal signs. Absent: distended, tenderness - Extremities Exam Extremities exam: Present: warm, radial pulses palpable and symetrical. Absent : calf tenderness, cyanotic, pedal edema - Neurological Exam Neurological exam: Present: alert, CN II-XII intact, normal gait, oriented X3, no focal deficits, strengths equal and symetr throughout. Absent: pronater drift, facial droop, speech deficit - Skin Skin exam: Present: dry, intact, normal color, warm
[2016-06-29 18:48] VITALS: BP 131/93
--- NOTE | 2016-06-29 19:29 | Electrocardiograph Report ---
[place] [id number] Test Date: 2016-06-28 Pat Name: Mayte Grace Department: 104 Room: 3B Gender: F Cuff Stitcher: ARIANA : 1960 Requested By: Willie Schwab Order Number: [id number] Reading MD: Manny Gaston MD Measurements Intervals [place] Rate: 72 P: 5 ME: 148 QRS: 15 QRSD: 83 T: 4 QT: 348 QTc: 373 Interpretive Statements SINUS RHYTHM MINIMAL VOLTAGE CRITERIA FOR LVH, CONSIDER NORMAL VARIANT Electronically Signed On 06-29-2016 19:27:47 EDT by Manny Gaston MD
--- NOTE | 2016-07-01 07:46 | Electrocardiograph Report ---
[address] [address] Test Date: 2016-06-29 Pat Name: Mayte Grace Department: 113 Room: 3B Gender: Bargain Table Clerk: BLANQUITA : 1960 Requested By: Yamile Rodriguez Order Number: [id number] Reading MD: Manny Gaston MD Measurements Intervals [place] Rate: 65 P: 12 OK: 136 QRS: 23 QRSD: 83 T: 23 QT: 348 QTc: 359 Interpretive Statements SINUS RHYTHM BASELINE ARTIFACT Electronically Signed On 07-01-2016 7:44:56 EDT by Manny Gaston MD
== END 2016-06-29 19:15 | disposition home or self-care (01) ==
LOC: EMEROO 11:12 → 3BNU 11:12
PROVIDERS: ADMIT Nurse Practitioner Family; ATTEND Nurse Practitioner Family

== ENCOUNTER 2021-08-22 22:26 | Observation (INO) ==
[2021-08-22] MEDS ORDERED: Isovue-370 500 ML BOTTLE IVP ONE (22:36)
[2021-08-22 22:51] LABS: Hematocrit 37.7 % (35.3-44.9); Hemoglobin 12.6 g/dL (11.5-15.4); Mean Corpuscular HGB Conc 33.4 g/dL (31.6-35.5); Mean Corpuscular Hemoglobin 33.1 pg (28.0-33.3); Mean Platelet Volume 10.2 fL (9.4-12.4); Platelet Count 328 K/mcL (140-400); Red Blood Count 3.81 M/mcL (3.82-4.97); Red Cell Distribution Width 13.3 % (11.5-14.5); White Blood Count 11.6 K/mcL (4.3-11.1)
[2021-08-22 22:59] LABS: INR 1.1; Prothrombin Time 11.8 Seconds (9.4-12.1)
[2021-08-22 23:01] LABS: Activated Partial Thrombo Time 29.7 Seconds (26.0-36.0)
[2021-08-22 23:17] LABS: BUN/Creatinine Ratio 13 (6-26); Blood Urea Nitrogen 16 mg/dL (6-20); Calcium 9.8 mg/dL (8.6-10.3); Carbon Dioxide 28 mEq/L (23-29); Chloride 104 mEq/L (98-107); Ethanol < 10 mg/dL (Less than 10); Glucose 126 mg/dL (70-105); Osmolality,Calculated 293 (280-300); Potassium 3.9 mEq/L (3.5-5.1); Sodium 140 mEq/L (136-145); eGFR For African Americans 55 (> 60); eGFR For Non-African Americans 46 (> 60)
[2021-08-22 23:18] LABS: Troponin I < 0.03 ng/mL (< 0.04)
[2021-08-22 23:40] LABS: Bilirubin,Urine Negative (Negative); Blood,Urine Negative (Negative); Clarity,Urine Clear (Clear); Color,Urine Colorless (Yellow); Glucose,Urine (UA) Normal (Normal); Ketones,Urine Negative (Negative); Leukocyte Esterase,Urine Negative (Negative); Nitrite,Urine Negative (Negative); PH,Urine 6.5 pH Units (5.0-8.0); Protein,Urine Negative (Neg-Trace); Specific Gravity,Urine > 1.030 (1.010-1.025); Urobilinogen,Urine Normal (Normal)
[2021-08-22 23:51] LABS: Amphetamine Screen,Urine Negative ng/mL (Cutoff=1000); Barbiturate Screen,Urine Negative ng/mL (Cutoff=200); Benzodiazepines Screen,Urine Negative ng/mL (Cutoff=200); Cannabinoid Screen,Urine Negative ng/mL (Cutoff = 50); Cocaine Screen,Urine Negative ng/mL (Cutoff= 300); Opiate Screen,Urine Negative ng/mL (Cutoff=300); Phencyclidine Screen,Urine Negative ng/mL (Cutoff=25)
[2021-08-23] MEDS ORDERED: Aspirin 325 MG TABLET PO ONE (00:35)
[2021-08-23] MEDS ORDERED: Naloxone 0.4 MG/ML INJ IVP PRN (02:39)
[2021-08-23] MEDS ORDERED: Ondansetron 4 MG/2 ML VIAL IVP PRN (02:39)
[2021-08-23] MEDS ORDERED: Acetaminophen 325 MG TABLET PO PRN (02:39)
[2021-08-23 03:28] LABS: Hematocrit 36.4 % (35.3-44.9); Hemoglobin 11.6 g/dL (11.5-15.4); Mean Corpuscular HGB Conc 31.9 g/dL (31.6-35.5); Mean Corpuscular Hemoglobin 31.5 pg (28.0-33.3); Mean Corpuscular Volume 98.9 fL (83.0-100.0); Mean Platelet Volume 9.8 fL (9.4-12.4); Platelet Count 304 K/mcL (140-400); Red Blood Count 3.68 M/mcL (3.82-4.97); Red Cell Distribution Width 13.2 % (11.5-14.5); White Blood Count 12.1 K/mcL (4.3-11.1)
[2021-08-23] MEDS ORDERED: Perflutren Lipid Microsphere 1.3 ML in 0.9 % Sodium Chloride 8.7 ML IVP PRN (03:34)
[2021-08-23 03:51] LABS: BUN/Creatinine Ratio 15 (6-26); Blood Urea Nitrogen 18 mg/dL (6-20); Calcium 9.3 mg/dL (8.6-10.3); Carbon Dioxide 27 mEq/L (23-29); Chloride 104 mEq/L (98-107); Glucose 117 mg/dL (70-105); Magnesium 1.7 mg/dL (1.6-2.6); Osmolality,Calculated 291 (280-300); Potassium 3.8 mEq/L (3.5-5.1); Sodium 139 mEq/L (136-145); Troponin I < 0.03 ng/mL (< 0.04); eGFR For African Americans 57 (> 60); eGFR For Non-African Americans 47 (> 60)
[2021-08-23] MEDS ORDERED: Dextrose 4 GM Chewable Tablets PO PRN ×2 (03:51)
[2021-08-23] MEDS ORDERED: D5% in Water 1,000 ML IVC PRN (03:51)
[2021-08-23] MEDS ORDERED: *HR* Dextrose 50 % in Water (Syg) 50 ML SYRINGE IVP PRN (03:51)
[2021-08-23] MEDS: Insulin LISPRO 300 UNITS/3 ML VIAL SUBQ SCH ×2 (06:09→13:06)
[2021-08-23 08:07] LABS: Chol/HDL Ratio 7.3 (0-4.9); Cholesterol 301 mg/dL (< 200); HDL Cholesterol 41 mg/dL (40-59); Triglycerides 440 mg/dL (< 150)
[2021-08-23 08:10] LABS: Estimated Average Glucose 154 mg/dl
[2021-08-23] MEDS ORDERED: Aspirin Enteric Coated 81 MG Tablet PO SCH (09:00)
[2021-08-23 10:42] VITALS: PULSE 70; TEMP 97.6; O2SAT 98
[2021-08-23] MEDS ORDERED: BuPROPion XL (24 HR) 150 MG TABLET PO SCH (12:15)
[2021-08-23] MEDS: *HR* LORazepam 1 MG TABLET PO PRN ×2 (12:32→14:56)
[2021-08-23 14:30] VITALS: BP 158/86
[2021-08-23] MEDS ORDERED: Gabapentin 100 MG CAPSULE PO SCH (15:00)
[2021-08-23] MEDS ORDERED: carvediloL 6.25 MG TABLET PO SCH (17:00)
== END 2021-08-23 17:03 | disposition home or self-care (01) ==
LOC: EMEROOARM 22:26 → 3BNU 22:26 → SUATTDRO 08-23 00:45 → 3BNU 08-23 01:49
PROVIDERS: ADMIT Student in an Organized Health Care Education/Training Program; ATTEND Internal Medicine